=== PATIENT | female | born 1960 | race African-American/Black ===

== ENCOUNTER 2016-08-28 17:46 | Emergency (ER) | payer SELFPAY ==
[2016-08-28] MEDS ORDERED: predniSONE 20 MG TAB ONE (18:01)
[2016-08-28] MEDS ORDERED: Ketorolac Tromethamine 60 MG/2 ML VIAL ONE (18:02)
[2016-08-28] MEDS ORDERED: Azithromycin 500 MG VIAL ONE (18:02)
[2016-08-28] MEDS ORDERED: Azithromycin 250 MG TAB ONE (18:03)
== END 2016-08-28 18:24 | disposition home or self-care (01) ==
LOC: BURERS 17:46
DX: J01.90 Acute sinusitis, unspecified (principal); E11.9 Type 2 diabetes mellitus without complications; I10 Essential (primary) hypertension; F17.200 Nicotine dependence, unspecified, uncomplicated
CPT/HCPCS: 96372; J0456; J1885; J7506